=== PATIENT | female | born 1985 | race Two or more races ===

== ENCOUNTER 2016-07-16 09:49 | Day surgery (SDC) | payer OTHER ==
[~2016-07-16] VITALS: Ht 154.9 cm; Wt 82.0 kg
[~2016-07-16 09:49] MED LIST: BUPIVACAINE/PF-EPI 0.25% 1:200K ONE; DOCU-30 PO; IBUP-1222 PO; LEVO112T2 PO; OXYC-302 PO; PREN1TAB60 PO
[2016-07-16] MEDS ORDERED: LACTATED RINGERS 1,000 ML IV SCH (10:24)
[2016-07-16 10:25] VITALS: BP 143/95
[2016-07-16] MEDS ORDERED: SILVER NITRATE STICK TP ONE (12:08)
[2016-07-16] MEDS ORDERED: MIDAZOLAM 1 MG/ML, 2ML ONE (12:23)
[2016-07-16] MEDS ORDERED: FENTANYL PF 250 MCG/5ML ONE (12:23)
[2016-07-16] MEDS ORDERED: DEXAMETHASONE 4 MG/ML, 1ML ONE (12:27)
[2016-07-16] MEDS ORDERED: KETOROLAC 30 MG/1 ML ONE (12:27)
[2016-07-16] MEDS ORDERED: CEFAZOLIN 1,000 MG ONE (12:27)
[2016-07-16] MEDS ORDERED: ONDANSETRON 2MG/ML, 2ML ONE (12:27)
[2016-07-16] MEDS ORDERED: PROPOFOL 10 MG/ML, 20ML ONE (12:27)
[2016-07-16] MEDS ORDERED: SUCCINYLCHOLINE 20 MG/ML, 10ML ONE (12:27)
[2016-07-16] MEDS ORDERED: OXYcodone 5 MG/5 ML ORAL.SOL UDC PO PRN (13:00)
[2016-07-16] MEDS ORDERED: FENTANYL PF 100 MCG/2ML IV PRN (13:00)
[2016-07-16] MEDS ORDERED: ONDANSETRON 2MG/ML, 2ML IVPush PRN (13:00)
[2016-07-16] MEDS ORDERED: MEPERIDINE/PF 25MG/0.5ML IVPush PRN (13:00)
[2016-07-16] MEDS ORDERED: HYDROmorphone 1 MG/ML, 1ML IV PRN (13:00)
[2016-07-16] MEDS ORDERED: MIDAZOLAM 1 MG/ML, 2ML IV PRN (13:00)
[2016-07-16] MEDS ORDERED: ACETAMINOPHEN 325 MG TABLET PO PRN (13:00)
[2016-07-16] MEDS ORDERED: ACETAMINOPHEN 650 MG/20.3 ML UDC ONE (14:06)
[2016-07-16] MEDS ORDERED: OXYcodone 5 MG/5 ML ORAL.SOL UDC ONE (14:06)
== END 2016-07-16 16:30 | disposition home or self-care (01) ==
LOC: STAR 09:49 → OUT 16:30
PROVIDERS: ATTEND Obstetrics & Gynecology
DX: Z30.2 Encounter for sterilization (principal); E03.9 Hypothyroidism, unspecified; E66.01 Morbid (severe) obesity due to excess calories; Z68.34 Body mass index [BMI] 34.0-34.9, adult; I10 Essential (primary) hypertension
CPT/HCPCS: 36415; 58661; 84703; 85025; 86850; 86900; 88302; J0330; J0690; J1100; J1885; J2250; J2405; J2704; J3010; J7120

== ENCOUNTER → 2016-10-08 | Outpatient (CLI) | payer OTHER ==
[~2016-10-08] MED LIST changes: -BUPIVACAINE/PF-EPI 0.25% 1:200K ONE
[2016-10-08 10:31] LABS: BLOOD UREA NITROGEN 15 mg/dL (7-18)
[2016-10-08 10:40] LABS: ASPARTATE AMINO TRANSFERASE 35 U/L (15-37)
== END | disposition home or self-care (01) ==
LOC: LAB 10:03
PROVIDERS: ATTEND Family Medicine
DX: Z13.220 Encounter for screening for lipoid disorders (principal); Z13.1 Encounter for screening for diabetes mellitus; E03.9 Hypothyroidism, unspecified; E78.5 Hyperlipidemia, unspecified; R10.9 Unspecified abdominal pain; R79.89 Other specified abnormal findings of blood chemistry
CPT/HCPCS: 36415; 80053; 80061; 82150; 83036; 83690; 84443

== ENCOUNTER → 2017-01-14 | Outpatient (CLI) | payer OTHER ==
[~2017-01-14] MED LIST changes: +DOCU-131 PO; -DOCU-30 PO
== END | disposition home or self-care (01) ==
LOC: LAB 11:02
PROVIDERS: ATTEND Family Medicine
DX: E03.9 Hypothyroidism, unspecified (principal)
CPT/HCPCS: 36415; 84443

== ENCOUNTER 2017-02-03 14:44 | Emergency (ER) | payer OTHER ==
[~2017-02-03] VITALS: Ht 154.9 cm; Wt 84.9 kg
[2017-02-03] MEDS ORDERED: ONDANSETRON 2MG/ML, 2ML ONE (15:27)
[2017-02-03] MEDS ORDERED: SODIUM CHLORIDE FLUSH 10ML SYR IVF ONE (15:30)
[2017-02-03] MEDS ORDERED: ONDANSETRON 2MG/ML, 2ML IVPush ONE (15:30)
[2017-02-03] MEDS ORDERED: SODIUM CHLORIDE 0.9% 1,000ML IVBOLUS ONE (15:30)
[2017-02-03] MEDS ORDERED: ENAL5TAB PO (15:33)
[2017-02-03 16:00] LABS: RAPID INFLUENZA A Negative (Negative); RAPID INFLUENZA B Negative (Negative)
[2017-02-03 16:07] LABS: HEMATOCRIT 44.9 % (34.6-47.8); HEMOGLOBIN 15.3 g/dL (11.7-16.4); WHITE BLOOD COUNT 8.4 x10^3/uL (3.4-10)
[2017-02-03 16:19] LABS: BLOOD UREA NITROGEN 12 mg/dL (7-18)
[2017-02-03 16:25] LABS: ASPARTATE AMINO TRANSFERASE 122 U/L (15-37)
[2017-02-03] MEDS ORDERED: DIPHENHYDRAMINE 50 MG/ML, 1ML ONE (18:14)
[2017-02-03] MEDS ORDERED: METOCLOPRAMIDE 5 MG/ML, 2ML ONE (18:14)
[2017-02-03] MEDS ORDERED: KETOROLAC 30 MG/1 ML ONE (18:14)
[2017-02-03] MEDS ORDERED: KETOROLAC 30 MG/1 ML IVPush ONE (18:30)
[2017-02-03] MEDS ORDERED: DIPHENHYDRAMINE 50 MG/ML, 1ML IVPush ONE (18:30)
[2017-02-03] MEDS ORDERED: METOCLOPRAMIDE 5 MG/ML, 2ML IVPush ONE (18:30)
[2017-02-03 19:35] VITALS: BP 131/89
== END 2017-02-03 19:38 | disposition home or self-care (01) ==
LOC: ED 17:55
DX: R11.2 Nausea with vomiting, unspecified (principal); R51 Headache; R10.9 Unspecified abdominal pain; I10 Essential (primary) hypertension; E03.9 Hypothyroidism, unspecified
CPT/HCPCS: 36415; 80053; 81001; 84703; 85025; 87086; 87400; 93005; 96361; 96374; 96375; 99285; J1200; J1885; J2405; J2765; J7030

== ENCOUNTER → 2017-02-22 | Outpatient (CLI) | payer OTHER ==
[~2017-02-22] MED LIST changes: +ENAL5TAB PO
[2017-02-22 10:06] LABS: ASPARTATE AMINO TRANSFERASE 50 U/L (15-37); BLOOD UREA NITROGEN 10 mg/dL (7-18)
== END | disposition home or self-care (01) ==
LOC: LAB 09:41
PROVIDERS: ATTEND Family Medicine
DX: E78.2 Mixed hyperlipidemia (principal); E03.9 Hypothyroidism, unspecified
CPT/HCPCS: 36415; 80053; 80061; 84443

== ENCOUNTER → 2017-03-10 | Outpatient (CLI) | payer OTHER | END | disposition home or self-care (01) | LOC: LAB 01:10 | PROVIDERS: ATTEND Family Medicine | DX: R94.5 Abnormal results of liver function studies (principal) | CPT/HCPCS: 36415; 80074 ==

== ENCOUNTER → 2017-03-18 | Outpatient (CLI) | payer OTHER | END | disposition home or self-care (01) | LOC: CFH 06:40 | PROVIDERS: ATTEND Family Medicine | DX: K76.0 Fatty (change of) liver, not elsewhere classified (principal) | CPT/HCPCS: 76705 ==

== ENCOUNTER → 2017-04-12 | Outpatient (CLI) | payer OTHER | END | disposition home or self-care (01) | LOC: LAB 03:43 | PROVIDERS: ATTEND Family Medicine | DX: E03.9 Hypothyroidism, unspecified (principal) | CPT/HCPCS: 36415; 84443 ==

== ENCOUNTER → 2017-04-29 | Outpatient (CLI) | payer OTHER | END | disposition home or self-care (01) | LOC: CFH 09:36 | PROVIDERS: ATTEND Family Medicine | DX: E04.9 Nontoxic goiter, unspecified (principal) | CPT/HCPCS: 76536 ==

== ENCOUNTER 2017-05-15 06:08 | Emergency (ER) | payer OTHER ==
[~2017-05-15] VITALS: Ht 157.5 cm; Wt 92.4 kg
[2017-05-15 06:10] VITALS: BP 166/108
[2017-05-15] MEDS ORDERED: ACETAMINOPHEN 325 MG TABLET PO ONE (07:00)
[2017-05-15] MEDS ORDERED: ACETAMINOPHEN 325 MG TABLET ONE (07:02)
== END 2017-05-15 07:10 | disposition home or self-care (01) ==
LOC: ED 07:05
DX: J02.8 Acute pharyngitis due to other specified organisms (principal); B97.89 Other viral agents as the cause of diseases classified elsewhere; I10 Essential (primary) hypertension; E03.9 Hypothyroidism, unspecified
CPT/HCPCS: 87081; 87880; 99284

== ENCOUNTER → 2017-05-20 | Outpatient (CLI) | payer OTHER | END | disposition home or self-care (01) | LOC: LAB 11:08 | PROVIDERS: ATTEND Family Medicine | DX: E03.9 Hypothyroidism, unspecified (principal) | CPT/HCPCS: 36415; 84443 ==

== ENCOUNTER → 2017-06-09 | Outpatient (CLI) | payer OTHER | LOC: RAD 01:04 | PROVIDERS: ATTEND Family Medicine | DX: M25.572 Pain in left ankle and joints of left foot (principal) ==

== ENCOUNTER → 2017-09-06 | Outpatient (CLI) | payer OTHER | END | disposition home or self-care (01) | LOC: CFH 06:51 | PROVIDERS: ATTEND Internal Medicine Cardiovascular Disease | DX: I10 Essential (primary) hypertension (principal) | CPT/HCPCS: 93306 ==

== ENCOUNTER 2019-02-18 00:20 | Emergency (ER) | payer OTHER ==
[~2019-02-18] VITALS: Ht 154.9 cm; Wt 93.0 kg
[2019-02-18 01:13] LABS: BASOPHILS % (AUTO) 0 % (0-1); EOSINOPHILS # (AUTO) 0.08 x10^3/uL (0-0.4); EOSINOPHILS % (AUTO) 1 % (1-7); LYMPHOCYTES # (AUTO) 1.51 x10^3/uL (1-3.4); LYMPHOCYTES % (AUTO) 25 % (22-44); MD NO; MEAN CORPUSCULAR HEMOGLOBIN 31.4 pg (27.0-34.8); MEAN CORPUSCULAR HGB CONC 33.2 g/dL (32.4-35.8); MEAN CORPUSCULAR VOLUME 94.5 fL (80-100); MEAN PLATELET VOLUME 9.4 fL (7.4-10.4); MONOCYTES # (AUTO) 0.64 x10^3/uL (0.2-0.8); MONOCYTES % (AUTO) 11 % (2-9); NEUTROPHILS # (AUTO) 3.79 x10^3/uL (1.8-6.8); NEUTROPHILS % (AUTO) 63 % (42-75); PLATELET COUNT 214 x10^3/uL (130-400); RED BLOOD COUNT 4.77 x10^6/uL (3.82-5.3); RED CELL DISTRIBUTION WIDTH 14.2 % (9.6-15.2)
[2019-02-18 01:26] LABS: ALANINE AMINOTRANSFERASE 288 U/L (12-78); ALBUMIN 3.8 g/dL (3.4-5.0); ANION GAP 8 mmol/L (5-15); CALCIUM 8.8 mg/dL (8.5-10.1); CHLORIDE 107 mmol/L (98-107); CREATININE 0.86 mg/dL (0.55-1.02)
[2019-02-18 01:30] LABS: ALKALINE PHOSPHATASE 120 U/L (45-117); BILIRUBIN,TOTAL 0.3 mg/dL (0.2-1.0); TOTAL PROTEIN 8.6 g/dL (6.4-8.2)
[2019-02-18 02:06] VITALS: BP 137/91
== END 2019-02-18 02:15 | disposition home or self-care (01) ==
LOC: ED 00:34
DX: R07.2 Precordial pain (principal); I10 Essential (primary) hypertension; R94.5 Abnormal results of liver function studies; Z98.51 Tubal ligation status
CPT/HCPCS: 36415; 71046; 80053; 83880; 84703; 85025; 93005; 99284

== ENCOUNTER → 2019-03-29 | Outpatient (CLI) | payer OTHER ==
[2019-03-29 11:01] LABS: ALANINE AMINOTRANSFERASE 248 U/L (12-78); ALBUMIN 3.7 g/dL (3.4-5.0); ANION GAP 6 mmol/L (5-15); CALCIUM 9.1 mg/dL (8.5-10.1); CHLORIDE 105 mmol/L (98-107); CREATININE 0.79 mg/dL (0.55-1.02)
[2019-03-29 11:11] LABS: ALKALINE PHOSPHATASE 111 U/L (45-117); BILIRUBIN,TOTAL 0.6 mg/dL (0.2-1.0); CHOL/HDL RATIO 7.2; CHOLESTEROL, TOTAL 209 mg/dL (140-239); HDL CHOL % 14 % (28-40); HDL CHOLESTEROL (DIRECT) 29 mg/dL (40-60); LDL CHOLESTEROL,CALCULATED 143 mg/dL (54-169); LDL/HDL RATIO 4.9 (0.5-3.0); T4 (THYROXINE) 9.3 mcg/dL (4.8-13.9); TOTAL PROTEIN 8.2 g/dL (6.4-8.2); TRIGLYCERIDES 184 mg/dL (50-200); VLDL CHOLESTEROL 37 mg/dL (0-25)
== END | disposition home or self-care (01) ==
LOC: LAB 10:41
PROVIDERS: ATTEND Physician Assistant Medical
DX: I10 Essential (primary) hypertension (principal); E78.2 Mixed hyperlipidemia
CPT/HCPCS: 36415; 80053; 80061; 83036; 84436; 84481

== ENCOUNTER 2020-04-29 17:29 | Emergency (ER) | payer OTHER ==
[~2020-04-29] VITALS: Ht 154.9 cm; Wt 93.1 kg
[~2020-04-29 17:29] MED LIST changes: -ENAL5TAB PO; +ENAL5TAB10 PO; -OXYC-302 PO; +OXYC1TAB14 PO
--- NOTE | 2020-04-29 17:47 | NUR ---
GANNON SINCE 1200. NAUSE NO V, NO DIZZY NO AURA. NO HX MIGRAINES. HYPERTENSIVE CHARTRED TAKES BP MEDS. CALL RODRIGUEZ.
[2020-04-29] MEDS ORDERED: KETOROLAC 30 MG/1 ML IVPush ONE (18:00)
[2020-04-29] MEDS ORDERED: SODIUM CHLORIDE 0.9% 1,000ML IVBOLUS ONE (18:00)
[2020-04-29] MEDS ORDERED: SODIUM CHLORIDE FLUSH 10ML SYR IVF ONE (18:00)
[2020-04-29] MEDS ORDERED: DIPHENHYDRAMINE 50 MG/ML, 1ML IVPush ONE (18:00)
[2020-04-29] MEDS ORDERED: PROCHLORPERAZINE 5 MG/ML, 2ML IVPush ONE (18:00)
[2020-04-29] MEDS ORDERED: PROCHLORPERAZINE 5 MG/ML, 2ML ONE (18:15)
[2020-04-29] MEDS ORDERED: KETOROLAC 30 MG/1 ML ONE (18:16)
[2020-04-29] MEDS ORDERED: DIPHENHYDRAMINE 50 MG/ML, 1ML ONE (18:16)
--- NOTE | 2020-04-29 18:38 | NUR ---
PIV EST MEDS PER MAY LIGHTS DIMMED CALL RODRIGUEZ.
--- NOTE | 2020-04-29 18:50 | NUR ---
REPORT TO JOMAR CLOUD.
[2020-04-29 19:39] VITALS: BP 159/104
== END 2020-04-29 19:57 | disposition home or self-care (01) ==
LOC: ED 18:31
DX: G44.209 Tension-type headache, unspecified, not intractable (principal); R11.2 Nausea with vomiting, unspecified; Z90.710 Acquired absence of both cervix and uterus
CPT/HCPCS: 96361; 96374; 96375; 99284; J0780; J1200; J1885; J7030